=== PATIENT | male | born 1955 | race Caucasian/White ===

== ENCOUNTER 2023-04-26 08:21 | Day surgery (SDC) | payer OTHER ==
[2023-04-22 15:29] VITALS: BMI 29.4
[2023-04-26 10:25] VITALS: RESP 18; TEMP 97.4
[2023-04-26 10:53] VITALS: BP 121/65; PULSE 65
== END 2023-04-26 11:13 | disposition home or self-care (01) ==
LOC: FASU-ENDO 08:21
PROVIDERS: ATTEND Internal Medicine Gastroenterology
PROC: 0DB78ZX Excision of Stomach, Pylorus, Via Natural or Artificial Opening Endoscopic, Diagnostic (ICD-10-PCS; 2023-04-26)
PROC: 0DB68ZX Excision of Stomach, Via Natural or Artificial Opening Endoscopic, Diagnostic (ICD-10-PCS; 2023-04-26)
PROC: 0DB48ZX Excision of Esophagogastric Junction, Via Natural or Artificial Opening Endoscopic, Diagnostic (ICD-10-PCS; 2023-04-26)
PROC: 0DB98ZX Excision of Duodenum, Via Natural or Artificial Opening Endoscopic, Diagnostic (ICD-10-PCS; principal; 2023-04-26 10:09)
DX: K21.00 Gastro-esophageal reflux disease with esophagitis, without bleeding (principal); K29.50 Unspecified chronic gastritis without bleeding; B96.81 Helicobacter pylori [H. pylori] as the cause of diseases classified elsewhere
CPT/HCPCS: 88305-TC; 88342-TC